=== PATIENT | male | born 1960 | race American Indian/Alaskan Native ===

== ENCOUNTER → 2018-03-30 | Day surgery (SDC) | payer OTHER ==
[~2018-03-30] MED LIST: HYDROCODONE-AP1 EAC6 PO; LISINOPRIL10 MG PO; TYLENOL325 MG PO
--- NOTE | ~2018-03-30 | OP ---
[address] [address] OPERATIVE REPORT Name: MARCIANO DELGADO Room: [facility]#: [id number] Admission: 03/30/18 Attend Phys: Eugene Castillo DO Discharge: Date of : 64 Report #: [id number] THIS REPORT FOR: //name// CC: Eugene St Randolph Alvarez MD DATE OF SERVICE: 03/30/2018 PREOPERATIVE DIAGNOSES: Bilateral inguinal hernias and also metastatic rectal carcinoma with a diverting loop colostomy. POSTOPERATIVE DIAGNOSES: Bilateral inguinal hernias and also metastatic rectal carcinoma with a diverting loop colostomy with the right side being direct and indirect inguinal hernia, left side was just indirect inguinal hernia. PROCEDURES: Bilateral inguinal hernia repair with mesh. SURGEON: Eugene Castillo DO. CAD DESIGN ENGINEER: Frank Clarke DO, PGY-3 resident. SECOND CHIEF CRNA: Marianne Hidalgo DO, PGY1, resident. ANESTHESIA: General endotracheal. ESTIMATED BLOOD LOSS: Less than 20 mL. COMPLICATIONS: None. DESCRIPTION OF PROCEDURE: After obtaining proper consents and discussing risks and complications with the patient, he was taken to the operating room, laid on the supine position, administered general anesthesia. A timeout was performed. We confirmed the appropriate patient and procedure. Preoperative antibiotics had been given. SCDs were in place. We then marked the ASIS and pubic tubercle on the left side and the right side and points midway between these spots were then chosen for incisions on both sides. We started on the patient's left side making a 5-cm incision along the lines of Romario with a #15 scalpel blade. This was carried down through the skin into the subcutaneous tissue using electrocautery for hemostasis. Once the external oblique fascia was encountered, it was incised along its fibers, grasped and elevated and dissected free from the underlying internal oblique muscle and ilioinguinal nerve. The internal oblique muscle was then split assuring no injury to the nerve. We then identified the inferior epigastric vessels and the transversalis fascia. The transversalis fascia was bluntly opened using a hemostat[place] [address] OPERATIVE REPORT Name: MARCIANO DELGADO Room: [facility]#: [id number] Admission: 03/30/18 Attend Phys: Eugene Castillo DO Discharge: Date of : 64 Report #: [id number] retracted medially. We then identified the spermatic cord, which was brought up into the wound. There was a moderate-sized indirect inguinal hernia sac. The sac was dissected free from the cord and then, we highly ligated the sac using 0 PDS suture. The excess sac was excised and passed off as specimen. We then checked for direct inguinal hernia. There was none identified. I then developed the preperitoneal space to allow for placement of an 11 x [address] mesh, which was then inserted and opened and then secured in place to the transversalis fascia using 0 PDS suture. The internal oblique muscle was then reapproximated also using 0 PDS suture over top of this. We then injected the subcutaneous tissues and the muscle with 0.5% Marcaine without epinephrine. The external oblique fascia was then closed using a running 0 Vicryl suture. The subcutaneous tissues were closed using 3-0 Vicryl suture. Skin was closed using 4-0 Monocryl subcuticular stitch. I then turned my attention to the patient's right side where a similar incision was made with a #15 scalpel blade, carried down through the skin into the subcutaneous tissue using electrocautery for hemostasis. Once the external oblique fascia was encountered, it was incised along its fibers, grasped and elevated and dissected free from the underlying internal oblique muscle and ilioinguinal nerve. The internal oblique muscle was then split assuring no injury to the nerve. We then identified the inferior epigastric vessels and the transversalis fascia was split and the vessels were retracted medially. Spermatic cord was then brought up into the wound. There was a much smaller indirect inguinal hernia sac, which was identified. It was dissected free from the cord and then reduced back into the peritoneal cavity. We also identified a direct inguinal hernia on this side and it was reduced back into the peritoneal cavity and then, the preperitoneal space was developed to allow for placement of an 11 x [address] mesh. The mesh was inserted opened in its entirety and then attached to the transversalis fascia using 0 PDS suture. The internal oblique muscle was then reapproximated using 0 PDS. The subcutaneous tissues and muscle were injected with 0.5% Marcaine without epinephrine. The external oblique fascia was then closed using 3-0 Vicryl suture. The external oblique fascia was closed using a 0 Vicryl suture. Subcutaneous tissues were closed using 3-0 Vicryl suture and the skin was closed using a 4-0 Monocryl subcuticular stitch. Mastisol, Steri-Strips, sterile OpSite and pressure dressings were placed. The patient tolerated the procedure well and was awakened in the operating room and transported to the recovery room in stable condition. Sponge, needle and instrument counts were all correct at the end of the procedure. By: [id number] Rani Castillo DO /torsten
[2018-03-30 06:25] LABS: HEMATOCRIT 44.1 % (42.0-52.0); HEMOGLOBIN 14.4 gm/dL (14.0-18.0); MCH 30.2 pg (26.0-34.0); MCHC 32.6 g/dL (28.0-37.0); MCV 92.7 fL (80.0-100.0); MPV 8.9 fl. (7.2-11.1); RBC 4.76 mil/uL (4.50-6.00); WBC 9.2 thou/uL (4.0-11.0)
[2018-03-30 06:32] LABS: CREATININE 1.1 mg/dL (0.6-1.3)
[2018-03-30 06:37] LABS: ALBUMIN 3.6 g/dL (3.4-5.0); TOTAL BILIRUBIN 0.2 mg/dL (<0.1-1.0); TOTAL PROTEIN 7.8 g/dL (6.4-8.2)
--- NOTE | 2018-03-30 17:52 | EKG ---
[place] [address] ELECTROCARDIOGRAM REPORT Name: MARCIANO DELGADO Room: [facility]#: [id number] Admission: 03/30/18 Attend Phys: Eugene Castillo DO Discharge: Date of : 64 Report #: [id number] THIS REPORT FOR: //name// [facility] Test Date: 2018-03-30 Test Time: 06:43:35 Pat Name: MARCIANO DELGADO Department: Room: Gender: M Ticket Manager: magaly : 1960 Requested By: Eugene Castillo Order Number: [id number] Reading MD: Randolph Escalera Measurements Intervals [place] Rate: 81 P: 72 LA: 137 QRS: 54 QRSD: 95 T: 53 QT: 397 QTc: 461 Interpretive Statements Sinus rhythm Borderline ST elevation, anterior leads, early repolarization No previous ECG available for comparison Electronically Signed On 03-30-2018 17:52:27 CDT by Randolph Escalera [email or web address] <ELECTRONICALLY SIGNED> By: Randolph Escalera MD, [facility] 03/30/18 [phone] [id number] Randolph Escalera MD, FACC /EPI
--- NOTE | 2018-04-02 11:08 | PATH ---
[address] [address] PATHOLOGY RPT PROCEDURE Name: MARCIANO LOCKHART Room: [facility] [place]#: [id number] Admission: 03/30/18 Date of : 64 Discharge: Report #: [id number] Path Case #: [id number] [facility] Accession Number: [id number] . 01 Material submitted: . LEFT HERNIA SACK . 01 Clinician provided ICD-10: K40.90 . 01 Clinical history: . Preop DX: Non-recurrent bilateral inguinal hernia without obstruction and Postop DX: Gangrene . 02 Diagnosis: Left hernia sac: - Benign mesothelial-lined fibromembranous/fibrofatty tissue with minimal chronic inflammation. . (KEITH:elina; 04/01/2018) MBJose/04/01/2018 . 02 Electronically signed: . Henry Linda MD, Pathologist NPI- [id number] . 01 Gross description: . Received in formalin labeled "Teto Lockhart, left hernia sac," is a segment of dusky rodriguez-li fibromembranous tissue with attached yellow, lobulated adipose tissue measuring 6.5 x 2.5 x 0.7 cm in greatest dimensions. Sectioning reveals a smooth, pale rodriguez-li sac interior, with no lesions or nodules noted grossly. Mental Health Social Worker tissue is submitted in cassette A1. (DAC; 03/31/2018) XDC/XDC . 02 Pathologist provided ICD-10: K40.90 . 02 CPT . 753616 Specimen Comment: A courtesy copy of this report has been sent to Specimen Comment: [phone], . Specimen Comment: Report sent to Specimen Comment: A duplicate report has been generated due to demographic updates. Performed at: [address] [address] PATHOLOGY RPT PROCEDURE Name: MARCIANO LOCKHART Room: [facility]#: [id number] Admission: 03/30/18 Date of : 64 Discharge: Report #: [id number] Path Case #: [id number] [address] [id number] MD Eugenio Chung MD Phone: [phone] Performed at: [facility] [address] [place] [address], [place] [id number] MD Henry Linda MD Phone: [phone]
== END | disposition home or self-care (01) ==
LOC: M.SUR 05:59
PROVIDERS: Surgery
DX: K40.20 Bilateral inguinal hernia, without obstruction or gangrene, not specified as recurrent (principal); C78.5 Secondary malignant neoplasm of large intestine and rectum; Z79.899 Other long term (current) drug therapy; Z79.891 Long term (current) use of opiate analgesic